=== PATIENT | female | born 1965 | race Caucasian/White ===

== ENCOUNTER 2021-04-05 08:15 | Emergency (ER) | payer BC, OTHER ==
--- NOTE | 2021-04-05 08:24 | EDM.PDOC ---
ED HPI GENERAL MEDICAL PROBLEM - General Chief Complaint: Upper Extremity Injury/Pain Stated Complaint: RT PINKY FINGER INJURY Time Seen by Provider: 04/05/21 08:22 Source of Information: Reports: Patient History Limitations: Reports: No Limitations - History of Present Illness INITIAL COMMENTS - FREE TEXT/NARRATIVE: 55 yo F with injury to R pinky finger. Finger slammed in a heavy door this morning. Has pain and bruising to the finger. No numbness/weakness. No additional injury. Patient does take plavix. Right Finger-Little Pain Score (Numeric/FACES): 5 - Related Data Allergies Allergy/AdvReac Type Severity Reaction Status Date / Time Sulfa (Sulfonamide Allergy Hives Verified 04/05/21 08:20 Antibiotics) Home Meds: Home Meds Aspirin [Hanna Chewable] 81 mg PO DAILY 04/15/16 [History] Clopidogrel [Plavix] 75 mg PO DAILY 04/15/16 [History] Dicyclomine HCl [Bentyl] 20 mg PO Q6HR #5 tablet 04/15/16 [Rx] Metoprolol Tartrate [Lopressor] 25 mg PO DAILY 04/15/16 [History] metFORMIN HCl [Metformin HCl] 500 mg PO BID 04/15/16 [History] Past Medical History Cardiovascular History: Reports: [place] (Approximately 12 years ago. 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.) - Past Surgical History Cardiovascular Surgical History: Reports: Carotid Stents GI Surgical History: Reports: Bariatric Procedure, Cholecystectomy Social & Family History - Living Situation & Occupation Living situation: Reports: Occupation: Employed Review of Systems - Review of Systems Review Of Systems: See Below Constitutional: Reports: No Symptoms Musculoskeletal: Reports: Hand Pain Skin: Reports: Bruising Neurological: Denies: Numbness ED EXAM, GENERAL - Physical Exam Exam: See Below Exam Limited By: No Limitations General Appearance: Alert, WD/WN, No Apparent Distress Head: Atraumatic Neck: Normal Inspection Respiratory/Chest: No Respiratory Distress Extremities: Other (R hand: ecchymosis, mild swelling, and tenderness to the distal R pinky finger. Nail is intact. Full ROM. Distal motor/sensation/perfusion intact. No subungal hematoma. ) Neurological: Alert, Normal Cognition Psychiatric: Normal Affect, Normal Mood Skin Exam: Warm, Dry, Intact Course - Vital Signs Last Recorded V/S: Last Vital Signs Temp 36.4 C 04/05/21 08:21 Pulse 86 04/05/21 08:21 Resp 14 04/05/21 08:21 BP 127/86 04/05/21 08:21 Pulse Ox 98 04/05/21 08:21 - Orders/Labs/Meds Orders: Active Orders 24 hr Category Date Time Status Hand Comp Min 3V Rt [CR] Stat Exams 04/05/21 08:23 Taken - Re-Assessments/Exams Free Text/Narrative Re-Assessment/Exam: 04/05/21 08:37 XR R hand shows a distal tuft fracture of the pinky finger. It is a closed fracture. Will place a finger splint. Advised ibuprofen/acetaminophen, no f/u needed if healing without problems. Departure - Departure Time of Disposition: 08:30 Disposition: Home, Self-Care 01 Clinical Impression: Closed fracture of tuft of distal phalanx of finger - Discharge Information Referrals: Elisa Reynoso [facility] [Primary Care Provider] - Forms: ED Department Discharge Additional Instructions: 1. Wear finger splint until pain/swelling resolve. Ice area of pain on and off today and tomorrow. 2. Take ibuprofen and/or acetaminophen as needed for pain. 3. Return to the ED as needed for worsening pain/swelling or any new concerning condition. Sepsis Event Note (ED) - Focused Exam Vital Signs: Vital Signs Temp Pulse Resp BP Pulse Ox 04/05/21 08:21 36.4 C 86 14 127/86 98 - My Orders Last 24 Hours: My Active Orders 04/05/21 08:23 Hand Comp Min 3V Rt [CR] Stat - Assessment/Plan Last 24 Hours: My Active Orders 04/05/21 08:23 Hand Comp Min 3V Rt [CR] Stat
[2021-04-05 08:37] VITALS: BP 127/86; PULSE 86
--- NOTE | 2021-04-05 10:35 | CR ---
Right hand: 3 views of the right hand were obtained. Comparison: No prior hand study is available. Small fracture is noted within the tuft of the distal phalanx with minimal displacement. No additional fracture or other abnormality is appreciated. Impression: 1. Minimally displaced tuft fracture within the distal right fifth finger. 2. No additional abnormality is appreciated on the right hand exam. Diagnostic code #3
== END 2021-04-05 08:54 | disposition home or self-care (01) ==
LOC: JD.ED 08:15
DX: S62.636A Displaced fracture of distal phalanx of right little finger, initial encounter for closed fracture (principal); I25.2 Old myocardial infarction; Z79.82 Long term (current) use of aspirin; Z79.02 Long term (current) use of antithrombotics/antiplatelets; Z88.2 Allergy status to sulfonamides; Z95.5 Presence of coronary angioplasty implant and graft; W22.8XXA Striking against or struck by other objects, initial encounter
CPT/HCPCS: 73130-26-RT; 73130-RT; 99283; 99283-25